=== PATIENT | male | born 1990 | race Caucasian/White ===

== ENCOUNTER 2020-01-26 15:22 | Day surgery (SDC) | payer BC ==
[2020-01-26] MEDS ORDERED: cefOXitin 2 GM in Premix Bag 1 BAG IV ONE (16:07)
--- NOTE | 2020-01-26 16:12 | PCM.HP.2 ---
H&P History of Present Illness - General Date of Service: 01/26/20 Admit Problem/Dx: Admission Diagnosis/Problem Admission Diagnosis/Problem Appendicitis Source of Information: Patient History Limitations: Reports: No Limitations - History of Present Illness Initial Comments - Free Text/Narative: Mr. Chen is a 29 yo man who presents with abdominal pain. This began sudde nly last night and was severe. He was able to sleep but pain was still present in the morning. He initially thought he had just eaten too much. He denies fever, nausea or vomiting. Currently his pain is better than it was when it began. He was evaluated in the clinic at [facility] by Shai Ferrara, and a CT scan was obtained that shows findings consistent with appendicitis and associated fecalith. Right Lower Abdomen Pain Score (Numeric/FACES): 3 - Related Data Allergies/Adverse Reactions: Allergies Allergy/AdvReac Type Severity Reaction Status Date / Time No Known Allergies Allergy Verified 01/26/20 15:34 Home Medications: Home Meds . [No Known Home Meds] 01/26/20 [History] Past Medical History - Past Health History Medical/Surgical History: Denies Medical/Surgical History - Infectious Disease History Infectious Disease History: Reports: Novel Coronavirus Social & Family History - Family History Family Medical History: No Pertinent Family History - Tobacco Use Tobacco Use Status *Q: Never Tobacco User Second Hand Smoke Exposure: No - Caffeine Use Caffeine Use: Reports: None - Recreational Drug Use Recreational Drug Use: No H&P Review of Systems - Review of Systems: Review Of Systems: See Below General: Reports: No Symptoms HEENT: Reports: No Symptoms Pulmonary: Reports: No Symptoms Cardiovascular: Reports: No Symptoms Gastrointestinal: Reports: Abdominal Pain Genitourinary: Reports: No Symptoms Musculoskeletal: Reports: No Symptoms Skin: Reports: No Symptoms Psychiatric: Reports: No Symptoms Neurological: Reports: No Symptoms Hematologic/Lymphatic: Reports: No Symptoms Immunologic: Reports: No Symptoms Exam - Exam Exam: See Below - Vital Signs Vital Signs: Last Vital Signs Temp 36.1 C 01/26/20 15:32 Pulse 61 01/26/20 15:32 Resp 18 01/26/20 15:32 BP 130/83 01/26/20 15:32 Pulse Ox 98 01/26/20 15:32 Weight: 102.058 kg - Exam General: Alert, Oriented, Cooperative HEENT: Conjunctiva Clear Neck: Supple Lungs: Clear to Auscultation, Normal Respiratory Effort Cardiovascular: Regular Rate, Regular Rhythm GI/Abdominal Exam: Soft, Other (minimal RLQ tenderness, no palpable mass. Reports pain is more toward the back side) Skin: Warm, Dry Neuro Extensive - Mental Status: Alert, Oriented x3 Psychiatric: Normal Mood - Patient Data Lab Results Last 24 hrs: Laboratory Results - last 24 hr 01/26/20 Range/Units 15:30 WBC 6.55 (4.23-9.07) K/mm3 RBC 5.48 (4.63-6.08) M/mm3 Hgb 16.5 (13.7-17.5) gm/dl Hct 47.5 (40.1-51.0) % MCV 86.7 (79.0-92.2) fl MCH 30.1 (25.7-32.2) pg MCHC 34.7 (32.2-35.5) g/dl RDW Std Deviation 40.6 (35.1-43.9) fL Plt Count 195 (163-337) K/mm3 MPV 9.8 (9.4-12.3) fl Neut % (Auto) 56.4 (34.0-67.9) % Lymph % (Auto) 35.6 (21.8-53.1) % Citrus % (Auto) 7.2 (5.3-12.2) % Eos % (Auto) 0.6 L (0.8-7.0) Baso % (Auto) 0.2 (0.1-1.2) % Neut # (Auto) 3.70 (1.78-5.38) K/mm3 Lymph # (Auto) 2.33 (1.32-3.57) K/mm3 [place] # (Auto) 0.47 (0.30-0.82) K/mm3 Eos # (Auto) 0.04 (0.04-0.54) K/mm3 Baso # (Auto) 0.01 (0.01-0.08) K/mm3 Result Diagrams: 01/26/20 15:30 Sepsis Event Note - Evaluation Sepsis Screening Result: No Definite Risk - Focused Exam Vital Signs: Vital Signs Temp Pulse Resp BP Pulse Ox 01/26/20 15:32 36.1 C 61 18 130/83 98 Problem List Initiated/Reviewed/Updated: Yes Orders Last 24hrs: Active Orders 24 hr Category Date Time Status Patient Status [ADT] Routine ADT 01/26/20 16:06 Active NPO Now [Nothing per Oral Now Diet] [DIET] Diet 01/26/20 Dinner Ordered COMPREHENSIVE METABOLIC PN,CMP [CHEM] Stat Lab 01/26/20 15:30 Ordered CORONAVIRUS COVID-19 LISBETH [MOLEC] Stat Lab 01/26/20 16:03 Received Lactated Ringers @ 100 MLS/HR(1000ml Bag) Med 01/26/20 16:15 Ordered Lactated Ringers [Ringers, Lactated] 1,000 ml IV ASDIRECTED cefOXitin [Mefoxin in Dextrose,Iso-Osm 2 GM/50 ML] 2 gm Med 01/26/20 16:07 Ordered Premix Bag 1 bag IV ONETIME Schedule Procedure [COMM] Stat Oth 01/26/20 16:05 Ordered Medication Orders Cefoxitin Sodium 2 gm/ Premix 50 mls @ 100 mls/hr IV ONETIME ONE Stop: 01/26/20 16:36 Assessment/Plan Comment:: acute appendicitis Plan for laparoscopic appendectomy now and anticipate discharge to home from recovery room. - Mortality Measure Prognosis:: Good
[2020-01-26] MEDS ORDERED: Bupivacaine 0.5% 30 ML SDV ONE (16:14)
[2020-01-26] MEDS ORDERED: Lactated Ringers 1,000 ML IV SCH (16:15)
--- NOTE | 2020-01-26 16:21 | PCM.PREANE ---
Preanesthetic Assessment - Procedure Proposed Procedure: Laparoscopic Appendectomy - Anesthesia/Transfusion/Family Hx Anesthesia History: Prior Anesthesia Without Reaction Family History of Anesthesia Reaction: No Transfusion History: No Prior Transfusion(s) Intubation History: Unknown - Review of Systems General: No Symptoms Pulmonary: No Symptoms (COVID + history: [place] diagnosed with no symptoms at that time nor any currently/ETOH: once a week.), Cough Cardiovascular: No Symptoms Gastrointestinal: No Symptoms (GERD), Abdominal Pain (Rated 2/10: with advil taken at 08:00) Neurological: No Symptoms Other: Reports: None - Physical Assessment NPO Status Date: 01/26/20 NPO Status Time: 14:00 Vital Signs: Last Vital Signs Temp 36.1 C 01/26/20 15:32 Pulse 61 01/26/20 15:32 Resp 18 01/26/20 15:32 BP 130/83 01/26/20 15:32 Pulse Ox 98 01/26/20 15:32 Height: 1.83 m Weight: 102.058 kg ASA Class: 2E Mental Status: Alert & Oriented x3 Airway Class: Mallampati = 2 Dentition: Reports: Normal Dentition, Implants (front upper), Caries Thyro-Mental Finger Breadths: 3 Mouth Opening Finger Breadths: 3 ROM/Head Extension: Full Lungs: Clear to Auscultation, Normal Respiratory Effort Cardiovascular: Regular Rate, Regular Rhythm, No Murmurs - Lab Values: Laboratory Last Values WBC 6.55 K/mm3 (4.23-9.07) 01/26/20 15:30 RBC 5.48 M/mm3 (4.63-6.08) 01/26/20 15:30 Hgb 16.5 gm/dl (13.7-17.5) 01/26/20 15:30 Hct 47.5 % (40.1-51.0) 01/26/20 15:30 MCV 86.7 fl (79.0-92.2) 01/26/20 15:30 MCH 30.1 pg (25.7-32.2) 01/26/20 15:30 MCHC 34.7 g/dl (32.2-35.5) 01/26/20 15:30 RDW Std Deviation 40.6 fL (35.1-43.9) 01/26/20 15:30 Plt Count 195 K/mm3 (163-337) 01/26/20 15:30 MPV 9.8 fl (9.4-12.3) 01/26/20 15:30 Neut % (Auto) 56.4 % (34.0-67.9) 01/26/20 15:30 Lymph % (Auto) 35.6 % (21.8-53.1) 01/26/20 15:30 [place] % (Auto) 7.2 % (5.3-12.2) 01/26/20 15:30 Eos % (Auto) 0.6 (0.8-7.0) L 01/26/20 15:30 Baso % (Auto) 0.2 % (0.1-1.2) 01/26/20 15:30 Neut # (Auto) 3.70 K/mm3 (1.78-5.38) 01/26/20 15:30 Lymph # (Auto) 2.33 K/mm3 (1.32-3.57) 01/26/20 15:30 [place] # (Auto) 0.47 K/mm3 (0.30-0.82) 01/26/20 15:30 Eos # (Auto) 0.04 K/mm3 (0.04-0.54) 01/26/20 15:30 Baso # (Auto) 0.01 K/mm3 (0.01-0.08) 01/26/20 15:30 All labs reviewed and noted and within acceptable ranges to proceed with procedure. - Allergies Allergies/Adverse Reactions: Allergies Allergy/AdvReac Type Severity Reaction Status Date / Time No Known Allergies Allergy Verified 01/26/20 15:34 - Anesthesia Plan Pre-Op Medication Ordered: None - Acknowledgements Anesthesia Type Planned: General Anesthesia Pt an Appropriate Candidate for the Planned Anesthesia: Yes Alternatives and Risks of Anesthesia Discussed w Pt/Guardian: Yes Pt/Guardian Understands and Agrees with Anesthesia Plan: Yes PreAnesthesia Questionnaire - Past Health History Medical/Surgical History: Denies Medical/Surgical History - Infectious Disease History Infectious Disease History: Reports: Novel Coronavirus - SUBSTANCE USE Tobacco Use Status *Q: Never Tobacco User Second Hand Smoke Exposure: No Recreational Drug Use History: No - HOME MEDS Home Medications: Home Meds . [No Known Home Meds] 01/26/20 [History] - CURRENT (IN HOUSE) MEDS Current Meds: Current Medications Cefoxitin Sodium 2 gm/ Premix 50 mls @ 100 mls/hr IV ONETIME ONE Stop: 01/26/20 16:36 Last Admin: 01/26/20 16:16 Dose: 100 mls/hr Documented by: Lactated Ringer's (Ringers, Lactated) 1,000 mls @ 100 mls/hr IV ASDIRECTED [facility] [place] Last Admin: 01/26/20 16:14 Dose: 100 mls/hr Documented by: Discontinued Medications Bupivacaine HCl (Marcaine 0.5%) Confirm Administered Dose 30 ml .ROUTE .STK-MED ONE Stop: 01/26/20 16:15 Cefoxitin Sodium (Mefoxin In Dextrose,Iso-Osm 2 Gm/50 Ml) Confirm Administered Dose 50 mls @ as directed .ROUTE .STK-MED ONE Stop: 01/26/20 16:16
[2020-01-26] MEDS ORDERED: Rocuronium 50 MG/5 ML Vial ONE (16:55)
[2020-01-26] MEDS ORDERED: Ketorolac 30 MG/ML SDV ONE (16:55)
[2020-01-26] MEDS ORDERED: Lidocaine 1% 4 ML ONE (16:55)
[2020-01-26] MEDS ORDERED: Ondansetron 4 MG/2 ML SDV ONE (16:55)
[2020-01-26] MEDS ORDERED: Dexamethasone 4 MG/ML 5 ML MDV ONE (16:55)
[2020-01-26] MEDS ORDERED: Succinylcholine/Sod PF 100 MG/5 ML SYRINGE IV ONE (16:55)
[2020-01-26] MEDS ORDERED: Lactated Ringers 1,000 ML ONE (16:55)
[2020-01-26] MEDS ORDERED: HYDROmorphone 0.5 MG/0.5 ML Syringe ONE (16:55)
[2020-01-26] MEDS ORDERED: Propofol 200 MG/20 ML SDV ONE (16:56)
[2020-01-26] MEDS ORDERED: Midazolam 1 MG/ML 2 ML SDV ONE (16:56)
[2020-01-26] MEDS ORDERED: fentaNYL 250 MCG/5 ML SDV ONE (16:56)
[2020-01-26] MEDS ORDERED: Ondansetron 4 MG/2 ML SDV IVPUSH PRN (17:21)
[2020-01-26] MEDS ORDERED: Albuterol 0.083% 2.5 MG/3 ML Neb Soln NEB PRN (17:21)
[2020-01-26] MEDS ORDERED: fentaNYL 100 MCG/2 ML SDV IVPUSH PRN (17:21)
[2020-01-26] MEDS ORDERED: HYDROmorphone 0.5 MG/0.5 ML Syringe IVPUSH PRN (17:21)
[2020-01-26] MEDS ORDERED: ePHEDrine 50 MG/ML SDV IVPUSH PRN (17:21)
[2020-01-26] MEDS ORDERED: diphenhydrAMINE 50 MG/ML SDV IVPUSH PRN (17:21)
--- NOTE | 2020-01-26 18:10 | PCM.PRNOTE ---
- Free Text/Narrative Note: Operative Report Operation: laparoscopic appendectomy Date: 01/26/2020 Attending Surgeon: Dominick Segundo MD Indication for Surgery: appendicitis with fecalith on CT scan today Preoperative antibiotics: 2 g cefoxitin IV VTE prophylaxis: SCDs Estimated Blood Loss: 30 cc Findings: inflamed appendix without gangrene or perforation. Patient seemed to bleed from all incision sites and from appendix staple line more than normal. Hemostasis was satisfactory at the conclusion of the case. Detailed Report: The patient underwent general endotracheal anesthesia after being placed supine on the operating table. Time out was performed, confirming the patients identity and the operation to be performed. The left arm was tucked at the patients side. The abdomen was prepped and draped in sterile fashion. A Veress needle was inserted into the abdominal cavity below the left costal margin along the mid-clavicular line. The abdomen was insufflated with CO2 to 12 mm Hg. Gas was aspirated superior to the umbilicus with a syringe in order to ensure safe placement of a 12 mm bladed laparoscopic port. The 5mm 30 degree laparoscope was then inserted and viscera inspected. An additional 5 mm port was placed under direct vision with the laparoscope at the left lower quadrant. Another 5 mm port was placed at the suprapubic area. The appendix was identified coming off the cecum and appeared acutely inflamed. The [place] Ligasure was used to create a window in the mesoappendix where the appendix was seen coming off the cecum. A 35 mm powered laparoscopic stapler with white cartridge x2 was used to divide the appendix flush with the base of the cecum. The mesoappendix was divided using the Ligasure. The specimen was then placed in an Endocatch bag and removed through the umbilical port. There was some minor bleeding at the staple line controlled with hook monopolar energy. The dissection field was suctioned dry. The larger port site was closed at the level of the fascia with vicryl suture using the PMI laparoscopic suture passer. Pneumoperitoneum was then released. All skin incisions were then closed with placement of subcuticular vicryl suture and dressed with dermabond. A total of 20 cc 0.5 % marcaine was used for local anesthesia at the incision sites. The patient tolerated the operation well, was extubated in the operating room and transferred to the PACU for routine post-anesthesia care and assessment of heart tones.
--- NOTE | 2020-01-26 18:12 | PCM.POSTAN ---
POST ANESTHESIA ASSESSMENT - MENTAL STATUS Mental Status: Alert - VITAL SIGNS Vital Signs: Last Vital Signs Temp 97.6 01/26/20 180 Pulse 95 01/26/20 1804 Resp 20 01/26/20 1804 BP 135/90 01/26/20 180 Pulse Ox 98 01/26/20 180 - RESPIRATORY Respiratory Status: Respiratory Rate WNL, Airway Patent, O2 Saturation Stable, Supplemental Oxygen - CARDIOVASCULAR CV Status: Pulse Rate WNL, Blood Pressure Stable - GASTROINTESTINAL GI Status: No Symptoms - POST OP HYDRATION Hydration Status: Adequate & Stable
--- NOTE | 2020-01-26 18:27 | PCM48HPAN ---
Post Anesthesia Note - EVALUATION WITHIN 48HRS OF ANESTHETIC Vital Signs in Normal Range: Yes Patient Participated in Evaluation: Yes Respiratory Function Stable: Yes Airway Patent: Yes Cardiovascular Function Stable: Yes Hydration Status Stable: Yes Pain Control Satisfactory: Yes Nausea and Vomiting Control Satisfactory: Yes Mental Status Recovered: Yes Vital Signs: Last Vital Signs Temp 36.7 C 01/26/20 18:20 Pulse 61 01/26/20 15:32 Resp 18 01/26/20 18:20 BP 123/81 01/26/20 18:20 Pulse Ox 100 01/26/20 18:20
== END 2020-01-26 19:34 | disposition home or self-care (01) ==
LOC: JD.ED 15:22 → JD.SDS 16:06
PROVIDERS: ATTEND Surgery
DX: K35.30 Acute appendicitis with localized peritonitis, without perforation or gangrene (principal); U07.1 COVID-19
CPT/HCPCS: 36415; 44970; 80053; 85025; 87635; J0330; J0694; J1100; J1170; J2001; J2250; J2405; J2704; J2710; J3010; J3490; J7120; 00840; J1885; J2370; U0002

== ENCOUNTER 2024-12-27 02:09 | Emergency (ER) | payer BC ==
[2024-12-27] MEDS ORDERED: Sodium Chloride 0.9% 10 ML Syringe FLUSH PRN (02:10)
[2024-12-27 02:18] LABS: BASOPHILS ABSOLUTE AUTO 0.0 K/mm3 (0.0-0.2); BASOPHILS PERCENT AUTO 0.3 % (0.0-1.0); EOSINOPHILS ABSOLUTE AUTO 0.0 K/mm3 (0.0-0.4); EOSINOPHILS PERCENT AUTO 0.3 % (0.0-6.0); IMMATURE GRAN ABSOLUTE AUTO 0.01 K/mm3 (0.00-0.05); IMMATURE GRAN PERCENT AUTO 0.1 % (0.0-0.4); LYMPHOCYTES ABSOLUTE AUTO 3.8 K/mm3 (1.0-4.8); LYMPHOCYTES PERCENT AUTO 48.5 % (24.0-44.0); MEAN PLATELET VOLUME 9.3 fl (9.4-12.4); MONOCYTES ABSOLUTE AUTO 0.5 K/mm3 (0.0-0.8); MONOCYTES PERCENT AUTO 5.7 % (0.0-8.0); NEUTROPHILS ABSOLUTE AUTO 3.6 K/mm3 (1.8-7.7); NEUTROPHILS PERCENT AUTO 45.1 % (41.0-71.0); NRBC ABSOLUTE 0.00 (0.00-0.02); NRBC PERCENT 0.0 % (0.0-0.2); PLATELET COUNT,PLT 186 K/mm3 (150-400); RED BLOOD CELL COUNT 5.58 M/mm3 (4.52-5.90); WHITE BLOOD CELL COUNT,WBC 7.88 K/mm3 (3.9-11.3)
[2024-12-27] MEDS ORDERED: Naloxone 0.4 MG/ML SDV IVPUSH PRN (02:20)
[2024-12-27] MEDS: Sodium Chloride 0.9% 10 ML Syringe FLUSH PRN (02:34)
[2024-12-27] MEDS: Iopamidol 755 Mg/ML 100 ML Bottle IVPUSH ONE (02:34)
[2024-12-27 02:37] LABS: INR 1.15
[2024-12-27 02:38] LABS: PTT,PARTIAL THROMBOPLSTIN TIME 28.6 SECONDS (21.7-31.4)
[2024-12-27] MEDS: Ondansetron 4 MG/2 ML SDV IVPUSH ONE (02:40)
[2024-12-27 02:46] LABS: A/G RATIO 1.2 (1-2); ALANINE AMINOTRANSFERASE,ALT 64.0 U/L (16-63); ASPARTATE AMNIOTRANSFERASE,AST 21.0 U/L (15-37); BILIRUBIN TOTAL 0.7 mg/dL (0.2-1.0); BLOOD UREA NITROGEN,BUN 18.0 mg/dL (7-18); CARBON DIOXIDE,CO2 28.0 mEq/L (21-32); CHLORIDE,CL 103.0 mEq/L (98-107); CREATININE 1.2 mg/dL (0.7-1.3); EST CRCL DRUG DOSING (CG) 98.95 mL/min; ESTIMATED GFR 82.0 mL/min (>60); GLUCOSE RANDOM 98.0 mg/dL (70-99); POTASSIUM,K 3.6 mEq/L (3.5-5.1); PROTEIN TOTAL,TP 7.6 g/dl (6.4-8.2); SODIUM,NA 142.0 mEq/L (136-145); TROPONIN I HIGH SENSITIVITY 5.0 pg/mL (<=76)
[2024-12-27 04:04] LABS: APPEARANCE,URINE CLEAR (Clear); GLUCOSE,URINE NEGATIVE (Negative); OCCULT BLOOD,URINE NEGATIVE (Negative)
[2024-12-27 04:12] LABS: CHOLESTEROL HDL 39 mg/dL (40-59); CHOLESTEROL LDL DIRECT 169 mg/dL (<100); CHOLESTEROL TOTAL 247 mg/dL (<200)
[2024-12-27 04:13] LABS: BUPRENORPHINE SCREEN,URINE NEGATIVE (CUTOFF=10); METHADONE SCREEN, URINE NEGATIVE (CUT0FF=200); METHAMPHETAMINES SCREEN, URINE NEGATIVE (CUTOFF=500); OXYCODONE SCREEN,URINE NEGATIVE (CUT0FF=100); THC SCREEN,URINE 20 NG/ML NEGATIVE (CUTOFF=50)
[2024-12-27 04:15] LABS: AMPHETAMINES SCREEN, URINE NEGATIVE (CUTOFF=500)
== END 2024-12-27 06:15 | disposition home or self-care (01) ==
LOC: JD.ED 02:09
DX: G45.9 Transient cerebral ischemic attack, unspecified (principal); E78.5 Hyperlipidemia, unspecified; Z86.16 Personal history of COVID-19; Z79.899 Other long term (current) drug therapy
CPT/HCPCS: 36415; 70450; 70496; 70498; 80053; 80061; 80306; 81003; 82947; 83036; 84484; 85025; 85610; 85730; 93005; 93246; 96374; 96375; 99285; A9270; J2405; Q9967; 93010; 99284; J1171